=== PATIENT | female | born 1940 | race Two or more races ===

== ENCOUNTER 2017-05-18 22:49 | Emergency (ER) | payer OTHER ==
[~2017-05-18] VITALS: Ht 152.4 cm; Wt 56.6 kg
[2017-05-18] MEDS ORDERED: CARV-39 PO (23:18)
[2017-05-19 00:01] LABS: HEMATOCRIT 33.6 % (34.6-47.8); HEMOGLOBIN 11.1 g/dL (11.7-16.4); WHITE BLOOD COUNT 7.3 x10^3/uL (3.4-10)
[2017-05-19 00:10] LABS: BLOOD UREA NITROGEN 32 mg/dL (7-18)
[2017-05-19 00:14] LABS: IS PT STATUS REG ER OR PRE ER? YES
[2017-05-19 00:49] VITALS: BP 153/49
== END 2017-05-19 00:53 | disposition home or self-care (01) ==
LOC: ED 23:59
DX: I10 Essential (primary) hypertension (principal); E11.9 Type 2 diabetes mellitus without complications; Z79.82 Long term (current) use of aspirin
CPT/HCPCS: 36415; 80048; 82040; 84484; 85025; 93005; 99285